=== PATIENT | female | born 1980 | race Caucasian/White ===

== ENCOUNTER 2016-12-25 15:32 | Emergency (ER) | payer BC ==
[~2016-12-25] VITALS: Ht 180.3 cm; Wt 77.0 kg
[~2016-12-25 15:32] MED LIST: ADVIL COLD &1 TABLET PO; COLACE100 MG PO; EXCEDRIN MIGRA1 EAC3 PO; NIGHTTIME SLEEP50 M1 PO; PERCOCET 5/31 TABLET PO; PRILOSEC40 MG PO; ZOFRAN ODT4 MG PO
[2016-12-25 16:13] LABS: HEMATOCRIT 38.8 % (36.0-46.0); MCH 30.2 PG (29.0-34.0); MCHC 32.7 G/DL (30.0-36.0); MCV 92.2 FL (83-99); PLATELET COUNT 314 K/uL (156-360); RBC DIS.WIDTH-CV 11.8 % (11.8-14.6); RBC DIS.WIDTH-SD 39.8 % (39-53); RED BLOOD COUNT 4.21 M/uL (3.80-5.20); WHITE BLOOD COUNT 6.2 K/uL (4.1-10.2)
[2016-12-25 16:26] LABS: CHLORIDE 109 mEq/L (99-109); POTASSIUM 3.9 mEq/L (3.7-5.4); SODIUM 140 mEq/L (136-147)
[2016-12-25 16:29] LABS: GLUCOSE 91 mg/dL (70-99)
[2016-12-25 16:30] LABS: ANION GAP 8 MEQ/L (2-14)
[2016-12-25 16:31] LABS: TOTAL BILIRUBIN 0.7 mg/dL (0.0-1.0)
[2016-12-25 16:32] LABS: ALKALINE PHOSPHATASE 67 IU/L (3-129); GFR ESTIMATE (CALCULATED) > 59 mL/min/
[2016-12-25 16:33] LABS: UREA NITROGEN (BUN) 9 mg/dL (9-23)
[2016-12-25 16:42] LABS: QUANTITATIVE HCG < 4.0 MIU/ML
[2016-12-25 16:56] LABS: ADD MIUA? YES; BILIRUBIN NEGATIVE; BLOOD MODERATE; COLOR YELLOW ((YELLOW)); GLUCOSE (STRIP) NEGATIVE; KETONES NEGATIVE; LEUKOCYTES TRACE; NITRITE NEGATIVE; PROTEIN (STRIP) NEGATIVE; SPECIFIC GRAVITY 1.014 (1.000-1.030); UROBILINOGEN 0.2 MG/DL (0.2-1.0)
[2016-12-25 17:04] LABS: BACTERIA 1+ /HPF; EPITHELIAL CELLS 3+ /HPF; MUCUS TRACE /LPF; RED BLOOD CELLS 0-5 /HPF (0-5); UCUL ADDED? NO
[2016-12-25 19:29] LABS: ADD MIUA? YES; BILIRUBIN NEGATIVE; BLOOD SMALL; COLOR YELLOW ((YELLOW)); GLUCOSE (STRIP) NEGATIVE; KETONES NEGATIVE; LEUKOCYTES NEGATIVE; NITRITE POSITIVE; PROTEIN (STRIP) NEGATIVE; SPECIFIC GRAVITY 1.015 (1.000-1.030); UROBILINOGEN 0.2 MG/DL (0.2-1.0)
[2016-12-25] MEDS ORDERED: NAPROSYN500 MG PO (21:13)
[2016-12-25] MEDS ORDERED: KEFLEX500 MG PO (21:13)
[2016-12-25 21:42] VITALS: BP 118/66
[2016-12-26 12:21] LABS: CHLAMYDIA TRACHOMATIS NEGATIVE; NEISSERIA GONORRHOEAE NEGATIVE
== END 2016-12-25 21:44 | disposition home or self-care (01) ==
LOC: EME 15:32
PROVIDERS: Nurse Practitioner Family
DX: R10.2 Pelvic and perineal pain (principal); N89.8 Other specified noninflammatory disorders of vagina; Z87.891 Personal history of nicotine dependence
CPT/HCPCS: 76856; 80053; 81003; 84702; 85027; 87210; 87491; 87591; 99281; 99284; J0696

== ENCOUNTER 2017-11-05 19:44 | Emergency (ER) | payer BC ==
[~2017-11-05] VITALS: Ht 180.3 cm; Wt 81.8 kg
[~2017-11-05 19:44] MED LIST changes: +KEFLEX500 MG PO; +NAPROSYN500 MG PO
[2017-11-05 20:16] LABS: HEMATOCRIT 37.8 % (36.0-46.0); HEMOGLOBIN 13.1 G/DL (11.9-15.5); MCH 31.6 PG (29.0-34.0); MCHC 34.7 G/DL (30.0-36.0); MCV 91.1 FL (83-99); PLATELET COUNT 315 K/uL (156-360); RED BLOOD COUNT 4.15 M/uL (3.80-5.20); WHITE BLOOD COUNT 8.3 K/uL (4.1-10.2)
[2017-11-05 20:27] LABS: CHLORIDE 106 mEq/L (99-109); GLUCOSE 94 mg/dL (70-99); POTASSIUM 3.5 mEq/L (3.7-5.4); SODIUM 138 mEq/L (136-147)
[2017-11-05 20:30] LABS: CREATININE 0.8 mg/dL (0.6-1.3); GFR ESTIMATE (CALCULATED) > 59 mL/min/
[2017-11-05 20:31] LABS: UREA NITROGEN (BUN) 8 mg/dL (9-23)
[2017-11-05 20:39] LABS: TROP-I INTERPRETATION NEGATIVE; TROPONIN-I < 0.01 ng/mL (0.0-0.30)
[2017-11-05 22:34] LABS: LIPASE 18 U/L (1.0-51.0)
[2017-11-06] MEDS ORDERED: CARAFATE100 MG/ML PO (01:09)
[2017-11-06] MEDS ORDERED: PROTONIX40 MG PO (01:09)
[2017-11-06 02:25] VITALS: BP 118/79
== END 2017-11-06 02:26 | disposition home or self-care (01) ==
LOC: EME 19:44
DX: K20.9 Esophagitis, unspecified (principal); Z82.79 Family history of other congenital malformations, deformations and chromosomal abnormalities; Z87.891 Personal history of nicotine dependence
CPT/HCPCS: 71046; 71275; 80048; 83690; 84484; 85027; 93005; 99281; 99285; J3010